=== PATIENT | female | born 1990 | race Hispanic/Latino ===

== ENCOUNTER 2020-06-27 18:41 | Emergency (ER) | payer OTHER, SELFPAY ==
--- NOTE | 2020-06-27 18:42 | ED.CHESTPAIN ---
HPI - Chest Pain General Chief Complaint: Arrhythmia/Palpitations Stated Complaint: heart rate fast hard time brreathing wants to pass Time Seen by Provider: 06/27/20 18:42 Source: patient and family Mode of arrival: Ambulatory Limitations: no limitations History of Present Illness HPI narrative: 29-year-old female nonsmoker with history of anxiety presents with significant other and a chief complaint of a rapid heart rate, trouble breathing and some diarrhea, her symptoms have been presenting over the course of the day. She tried taking a half of a Xanax at home and it did little to relieve her. She denies any dietary or medication change. She denies any significant stress at home. She denies any exposure to ill persons. She has had no headache, blurred vision trouble swallowing. She has no fever, chills, chest pain or cough. Her last menses is just finishing up and is normal for her. She also complains of some redness and blotchy patches on her arms abdomen and chest. She denies any known or obvious allergic exposure, denies any tongue, lip or throat swelling. She did have an episode rather similar a couple weeks ago and had routine allergy shots without significant findings MD complaint: other Onset (ago): hour(s) Duration: progressively worsening Onset: during rest Treatments prior to arrival chest pain: none Related Data Previous Rx's Medication Instructions Recorded prednisone See Rx Instructions .ROUTE 06/27/20 .COMPLEX #30 tab Allergies Allergy/AdvReac Type Severity Reaction Status Date / Time Penicillins Allergy Unknown Verified 06/27/20 19:22 Review of Systems Review of Systems ROS Unobtainable: All systems reviewed & are unremarkable except as noted in HPI and below Constitutional Constitutional: Denies chills, Denies fatigue, Denies fever(s), Denies frequent falls, Denies lethargy and Denies weakness Eyes Eyes: Denies change in vision, Denies eye discharge, Denies irritation and Denies loss of vision ENT Ears, Nose, Mouth, and Throat: Denies change in voice, Denies dizziness, Denies neck pain, Denies sore throat and Denies throat swelling Cardiovascular Cardiovascular: Denies chest pain, Denies irregular heart rhythm, Reports lightheadedness, Reports palpitations, Denies dyspnea, Denies dyspnea on exertion and Denies orthopnea Respiratory Respiratory: Denies cough, Denies dyspnea, Denies dyspnea on exertion and Denies wheezing Gastrointestinal Gastrointestinal: Denies abdominal pain, Denies change in bowel habits, Reports diarrhea, Denies nausea and Denies vomiting Musculoskeletal Musculoskeletal: Denies neck pain and Denies numbness Integumentary/Breasts Skin/Breast: Denies pruritus, Denies erythema, Denies rash and Denies wounds Neurologic Neurologic: Denies behavioral changes, Denies confusion, Denies dizziness, Denies frequent falls, Denies loss of vision, Denies numbness and Denies weakness Psychiatric Psychiatric: Denies anxiety, Denies behavioral changes, Denies confusion, Denies depression, Denies homicidal ideation and Denies suicidal ideation Endocrine Endocrine: Denies fatigue, Denies flushing and Reports palpitations Hematologic/Lymphatic Hematologic/Lymphatic: Denies easy bruising Allergic/Immunologic Allergic/Immunologic: Denies urticaria, Denies throat swelling and Denies wheezing Exam Narrative Exam Narrative: GENERAL: [29] year old patient appears stated age. Well-nourished, well-developed patient, in mild distress. Very anxious, tearful HEAD: Atraumatic. Normocephalic. EYES: Pupils equal round and reactive. Extraocular motions intact. No scleral icterus. No injection or drainage. ENT: No tongue, lip or throat swelling Nose without bleeding, purulent drainage. Throat without erythema, tonsillar hypertrophy or exudate. Airway patent. NECK: Trachea midline. Non tender CARDIOVASCULAR: Tachycardic but regular rhythm without murmurs, gallops, or rubs. RESPIRATORY: Clear to auscultation. Breath sounds equal bilaterally. No wheezes, rales, or rhonchi. GASTROINTESTINAL: Abdomen soft, non-tender, nondistended. EXTREMITIES: No edema or joint tenderness. BACK: Nontender without deformity or crepitance. No flank tenderness. NEURO: AOx3. SKIN: Erythematous mildly pruritic patches on volar surfaces of both arms, abdomen chest Initial Vital Signs Initial Vital Signs: Vital Signs Temperature 98.0 F 06/27/20 18:46 Pulse Rate 126 H 06/27/20 18:46 Respiratory Rate 32 H 06/27/20 18:46 Blood Pressure 131/74 06/27/20 18:46 Pulse Oximetry 100 06/27/20 18:46 Course Orders Ordered: ED Orders 06/27/20 19:05 Complete Blood Count AUTO DIFF Stat Comprehensive Metabolic Panel Stat D Dimer Stat Magnesium Stat Thyroid Stimulating Hormone Stat 06/27/20 19:15 COVID19 -ED/INPAT/OR/L&D Stat Discontinued Medications Diphenhydramine HCl (Benadryl) 25 mg IV NOW ONE Stop: 06/27/20 19:28 Last Admin: 06/27/20 19:49 Dose: 25 mg Documented by: STEPHON Sodium Chloride (Normal Saline 0.9%) 1,000 mls @ 1,000 mls/hr IV BOLUS ONE Stop: 06/27/20 19:51 Last Infusion: 06/27/20 20:13 Dose: 0 mls/hr Documented by: Admin: 06/27/20 19:14 Dose: 1,000 mls/hr Documented by: FEDERICO Famotidine (Pepcid) 20 mg in 50 mls @ 200 mls/hr IV NOW ONE Stop: 06/27/20 19:41 Last Infusion: 06/27/20 20:13 Dose: 0 mls/hr Documented by: Admin: 06/27/20 19:56 Dose: 200 mls/hr Documented by: STEPHON Ketorolac Tromethamine (Toradol) 15 mg IV NOW ONE Stop: 06/27/20 18:53 Last Admin: 06/27/20 19:13 Dose: 15 mg Documented by: FEDERICO Methylprednisolone (Solu-Medrol 125 Mg Vial) 125 mg IV NOW ONE Stop: 06/27/20 19:28 Last Admin: 06/27/20 19:49 Dose: 125 mg Documented by: STEPHON Reevaluation(s) Reevaluation #1: After above-stated therapies patient feels tremendous relief. Her rash has completely resolved, vital signs have normalized and she feels ready for discharge. She has been given return precautions and had all of her questions answered to her apparent satisfaction Vital Signs Vital signs: Vital Signs - 8 hr 06/27/20 19:49 06/27/20 20:11 06/27/20 20:12 Temperature 98.2 F Pulse Rate 89 92 H 83 Respiratory Rate 23 15 Blood Pressure 123/72 106/69 Pulse Oximetry 99 100 100 MDM - Chest Pain Lab Data Result diagrams: 06/27/20 19:05 06/27/20 19:05 Labs: Lab Results 06/27/20 06/27/20 06/27/20 Range/Units 19:05 19:05 19:05 WBC 7.1 (4.5-11.0) X10^3/uL RBC 4.28 (4.0-5.2) X10^6/uL Hgb 13.5 (12.0-16.0) g/dL Hct 39.5 (36-46) % MCV 92.1 (80-100) fL MCH 31.5 (26-34) PG MCHC 34.1 (30-36) % RDW 13.1 (11.6-14.8) % Plt Count 249 (150-400) X10^3/uL Neut % (Auto) 45.8 L (50-75) % Lymph % (Auto) 44.7 H (25-40) % Garza % (Auto) 7.8 (3-14) % Eos % (Auto) 1.2 L (2-4) % Baso % (Auto) 0.5 (0-2) % Neut # (Auto) 3200 (2735-5915) /uL Lymph # (Auto) 3200 (4722-6727) /uL Garza # (Auto) 600 (0-900) /uL Eos # (Auto) 100 (0-450) /uL Baso # (Auto) 0 (0-100) /uL D-Dimer (<230) ng/mL Sodium 137 (137-145) mmol/L Potassium 3.7 (3.4-5.1) mmol/L Chloride 103 (98-107) mmol/L Carbon Dioxide 23 (22-32) mmol/L BUN 12 (7-17) mg/dL Creatinine 0.69 (0.52-1.04) mg/dL Estimated GFR > 60.0 (>60) mL/min BUN/Creatinine Ratio 17.4 (6-22) Glucose 124 H (70-100) mg/dL Calcium 9.4 (8.4-10.2) mg/dL Magnesium 1.8 (1.6-2.3) mg/dL Total Bilirubin 0.4 (0.2-1.3) mg/dL AST 40 H (14-36) IU/L ALT 28 (<35) IU/L Alkaline Phosphatase 67 (38-126) U/L Total Protein 7.7 (6.3-8.2) g/dL Albumin 4.5 (3.5-5.0) g/dL Globulin 3.2 (1.7-4.1) g/dL Albumin/Globulin Ratio 1.4 (1.0-2.8) TSH 2.65 (0.47-4.68) uIU/mL COVID-19 PCR (Negative) 06/27/20 06/27/20 Range/Units 19:05 19:15 WBC (4.5-11.0) X10^3/uL RBC (4.0-5.2) X10^6/uL Hgb (12.0-16.0) g/dL Hct (36-46) % MCV (80-100) fL MCH (26-34) PG MCHC (30-36) % RDW (11.6-14.8) % Plt Count (150-400) X10^3/uL Neut % (Auto) (50-75) % Lymph % (Auto) (25-40) % Garza % (Auto) (3-14) % Eos % (Auto) (2-4) % Baso % (Auto) (0-2) % Neut # (Auto) (1705-0403) /uL Lymph # (Auto) (3667-3954) /uL Garza # (Auto) (0-900) /uL Eos # (Auto) (0-450) /uL Baso # (Auto) (0-100) /uL D-Dimer 259 H (<230) ng/mL Sodium (137-145) mmol/L Potassium (3.4-5.1) mmol/L Chloride (98-107) mmol/L Carbon Dioxide (22-32) mmol/L BUN (7-17) mg/dL Creatinine (0.52-1.04) mg/dL Estimated GFR (>60) mL/min BUN/Creatinine Ratio (6-22) Glucose (70-100) mg/dL Calcium (8.4-10.2) mg/dL Magnesium (1.6-2.3) mg/dL Total Bilirubin (0.2-1.3) mg/dL AST (14-36) IU/L ALT (<35) IU/L Alkaline Phosphatase (38-126) U/L Total Protein (6.3-8.2) g/dL Albumin (3.5-5.0) g/dL Globulin (1.7-4.1) g/dL Albumin/Globulin Ratio (1.0-2.8) TSH (0.47-4.68) uIU/mL COVID-19 PCR Negative (Negative) Point of Care Testing Test Results Negative Urine Dip Bedside Urine Glucose Negative Bedside Urine Bilirubin - Negative Bedside Urine Ketone - Negative Urine Specific Savage 1.015 Bedside Urine Occult Blood +++ Bedside Urine pH 6.0 Bedside Urine Protein - Negative Bedside Urine Urobilinogen - Negative Bedside Urine Nitrite - Negative Bedside Urine Leukocytes - Negative Esterase Discharge Plan Departure Patient Disposition: Home Clinical Impression: Palpitations Allergic reaction Qualifiers: Encounter type: initial encounter Qualified Code(s): T78.40XA - Allergy, unspecified, initial encounter Discharge Date/Time: 06/27/20 20:30 Instructions: DI for Palpitations Activity Restrictions/Additional Instructions: *You have been diagnosed with [ palpitations, heart racing, and possible allergic reaction ] *What to do: *Take medications as directed *Follow up with your primary care provider in 2-3 days, call for an appointment. Let them know you were seen in the Emergency Department and that we ask that you be seen in follow up *Return to ER if you should have any new, worsening or concerning symptoms Prescriptions: New prednisone 10 mg tablet See Rx Instructions .ROUTE .COMPLEX Qty: 30 RF: 0
[2020-06-27 18:46] VITALS: BP 131/74; PULSE 126; RESP 32; TEMP 36.7; O2SAT 100
[2020-06-27 19:09] LABS: Add Manual Diff / Slide Review NO; Basophils Absolute Auto 0 /uL (0-100); Basophils Percent Auto 0.5 % (0-2); Eosinophils Absolute Auto 100 /uL (0-450); Eosinophils Percent Auto 1.2 % (2-4); Hematocrit 39.5 % (36-46); Hemoglobin 13.5 g/dL (12.0-16.0); Lymphocytes Absolute Auto 3200 /uL (1100-4500); Lymphocytes Percent Auto 44.7 % (25-40); Mean Corpuscular HGB Conc 34.1 % (30-36); Mean Corpuscular Hemoglobin 31.5 PG (26-34); Mean Corpuscular Volume 92.1 fL (80-100); Monocytes Absolute Auto 600 /uL (0-900); Monocytes Percent Auto 7.8 % (3-14); Neutrophils Absolute Auto 3200 /uL (1500-7000); Neutrophils Percent Auto 45.8 % (50-75); Platelet Count 249 X10^3/uL (150-400); Red Blood Cell Count 4.28 X10^6/uL (4.0-5.2); Red Cell Distribution Width 13.1 % (11.6-14.8); White Blood Cell Count 7.1 X10^3/uL (4.5-11.0)
[2020-06-27] MEDS: KETOROLAC 60 MG/2 ML VIAL 15 MG IV (19:13)
[2020-06-27] MEDS: SODIUM CHLORIDE 0.9% 1,000 ML 1000 ML IV (19:14)
[2020-06-27 19:18] VITALS: PULSE 106; O2SAT 100
[2020-06-27 19:19] LABS: D Dimer 259 ng/mL (<230)
[2020-06-27 19:21] LABS: Alanine Aminotransferase 28 IU/L (<35); Albumin 4.5 g/dL (3.5-5.0); Albumin Globulin Ratio 1.4 (1.0-2.8); Alkaline Phosphatase 67 U/L (38-126); Aspartate Aminotransferase 40 IU/L (14-36); BUN Creatinine Ratio 17.4 (6-22); Bilirubin Total 0.4 mg/dL (0.2-1.3); Blood Urea Nitrogen 12 mg/dL (7-17); Calcium 9.4 mg/dL (8.4-10.2); Carbon Dioxide 23 mmol/L (22-32); Chloride 103 mmol/L (98-107); Estimated Glomerular Filt Rate > 60.0 mL/min (>60); Globulin 3.2 g/dL (1.7-4.1); Glucose 124 mg/dL (70-100); HEMOLYSIS < 15 (0-50); Magnesium 1.8 mg/dL (1.6-2.3); Potassium 3.7 mmol/L (3.4-5.1); Sodium 137 mmol/L (137-145); Total Protein 7.7 g/dL (6.3-8.2)
[2020-06-27 19:38] LABS: COVID19 -Nasal RAPID Negative (Negative)
[2020-06-27 19:39] VITALS: PULSE 100; RESP 19; O2SAT 99
[2020-06-27 19:49] VITALS: BP 123/72; PULSE 89; RESP 23; O2SAT 99
[2020-06-27] MEDS: diphenhydrAMINE 50 MG/ML VIAL 25 MG IV (19:49)
[2020-06-27] MEDS: methylPREDNISolone 125 MG/2 ML VIAL IV (19:49)
[2020-06-27] MEDS: FAMOTIDINE 20 MG/50 ML PIGGYBACK 200 MG IV (19:56)
[2020-06-27 20:05] LABS: Thyroid Stimulating Hormone 2.65 uIU/mL (0.47-4.68)
[2020-06-27 20:11] VITALS: PULSE 92; O2SAT 100
[2020-06-27 20:12] VITALS: BP 106/69; PULSE 83; RESP 14; RESP 15; TEMP 36.8; O2SAT 100
--- NOTE | 2020-06-27 20:29 | PC.NURSE ---
Redness to chest/arms improved after meds, pt reports she feels better. Tolerating water PO. Ambulated to bathroom with steady gait.
== END 2020-06-27 20:30 | disposition home or self-care (01) ==
PROVIDERS: Emergency Provider Emergency Medicine
DX: R00.2 Palpitations (principal); T78.40XA Allergy, unspecified, initial encounter; R19.7 Diarrhea, unspecified
CPT/HCPCS: 36415; 80053; 81003; 81025; 83735; 84443; 85025; 85379; 87635; 93005; 96365; 96375; 99284; J1200; J1885; J2930